=== PATIENT | male | born 1960 | race Caucasian/White ===

== ENCOUNTER 2017-11-06 18:49 | Emergency (ER) | payer BC ==
--- NOTE | 2017-11-06 19:28 | RAD ---
RADIOGRAPH RIGHT HAND 3 VIEWS: 11/06/17 HISTORY: 57-year-old male status post acute blunt trauma to right hand. FINDINGS: No dislocation, fracture or any other significant osseous abnormality identified. IMPRESSION: Negative. POS: [facility]
[2017-11-06] MEDS ORDERED: Bacitracin Zinc 1 Packet ONE (19:40)
== END 2017-11-06 19:54 | disposition home or self-care (01) ==
LOC: ERS 18:49
DX: S60.221A Contusion of right hand, initial encounter (principal); S60.419A Abrasion of unspecified finger, initial encounter; E78.5 Hyperlipidemia, unspecified; Z79.899 Other long term (current) drug therapy; V49.3XXA Car occupant (driver) (passenger) injured in unspecified nontraffic accident, initial encounter